=== PATIENT | male | born 1980 | race Caucasian/White ===

== ENCOUNTER 2017-12-15 20:57 | Inpatient (IN) | payer OTHER ==
[~2017-12-15] VITALS: Ht 177.8 cm; Wt 90.9 kg
--- NOTE | ~2017-12-15 | EKG ---
[place], [place] ELECTROCARDIOGRAM REPORT NAME: STEPHEN VELASQUEZ UNIT #: [id number] ROOM: [facility] DOCTOR: INDIRA DRAFT REPORT BIRTHDATE: [address] 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 Electronically Signed On 12-16-2017 8:07:10 PDT by Nelson Rubio MD CM:EKGRPT:ELECTROCARDIOGRAM REPORT [id number] DESIRAE CRAIN DRAFT REPORT DESIRAE SHELTON DO
--- NOTE | ~2017-12-15 | CON ---
[place], [place] REPORT OF CONSULTATION NAME: STEPHEN VELASQUEZ UNIT #: [id number] ROOM: 501 DOCTOR: MEDHAT SOTO MD BIRTHDATE: [birth year] DOS: 12/16/2017 CARDIOLOGY CONSULTATION CHIEF COMPLAINT: Chest pain. HISTORY OF PRESENT ILLNESS: The patient was seen in the Cardiology Department just prior to a stress test. He is being evaluated for chest pain. He is a 37-year-old man who has a history of non-Hodgkin's lymphoma, which was diagnosed about 2014. He states that he did have swollen lymph nodes for several years prior to the actual diagnosis. He was treated and went into remission, but recently was found to have adenopathy in his left groin. A CAT scan and biopsy confirmed recurrent disease and he is to be evaluated by Oncology in the very near future. Last night while lying on a sofa watching television, he developed a sharp pain that radiated across his chest. This got worse with lying down and felt somewhat better when he sat up. It was made worse by a deep breath. There was no associated fever, chill or sweat. He presented to the Emergency Room where aspirin and nitroglycerin did not afford any relief. Initial troponin levels were normal. White count was normal at 9300. Electrocardiogram showed early repolarization changes, but no acute ischemia. A CT scan of the chest showed no evidence for pericarditis, pulmonary embolism, pleural effusion or mediastinal adenopathy. The patient continues to have pain today. Once again, it is made worse by deep breathing or lying down. He does admit to severe gastroesophageal reflux disease, but states that this feels different from that. PAST MEDICAL HISTORY: Includes, 1. Non-Hodgkin's lymphoma in remission until recently and first diagnosed around 2014. 2. Chest pain prompting current admission. The patient denies any history of diabetes, hypertension, hyperlipidemia, myocardial infarction or stroke. FAMILY HISTORY: Family members do have type 2 diabetes mellitus, hypertension and a stroke. None of these occurred at an early age. MEDICATIONS PRIOR TO ADMISSION: The patient is on no chronic prescribed medicines. ALLERGIES: THE PATIENT LISTS AN ALLERGY TO PENICILLIN PRODUCTS. REVIEW OF SYSTEMS: The patient denies diplopia or loss of vision. He denies lightheadedness or syncope. He denies focal weakness. He denies fevers, chills or sweats. He denies any recent weight change. He denies orthopnea or PND. He denies cough or hemoptysis. He does have the chest pain described above. He denies change in bowel or bladder habits. He denies any blood in his stools or [place], [place] REPORT OF CONSULTATION NAME: STEPHEN VELASQUEZ UNIT #: [id number] ROOM: [facility] DOCTOR: MEDHAT SOTO MD BIRTHDATE: [birth year] urine. He denies heat or cold intolerance. He denies any peripheral edema. Remainder of the review of systems is negative except as noted above. SOCIAL HISTORY: The patient drinks alcohol socially and does not smoke. He does not use recreational drugs. 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 PHYSICAL EXAMINATION: GENERAL: The patient is well-nourished white male who is awake, alert and oriented. VITAL SIGNS: Pulse is 78 regular. Blood pressure is 111/67. He is afebrile. He weighs 90.9 kg and has a body mass index 28.8. HEENT: Normocephalic, atraumatic. Extraocular muscles are intact. Sclerae are clear. Pupils equal, round and react to light. The oral mucosa is moist. Tongue is midline. NECK: Supple. He has no jugular distention. Carotids are full and I heard no bruits. He had no neck or supraclavicular masses, no thyromegaly. LUNGS: Respirations are unlabored. His chest is clear to auscultation and percussion. He has no presacral edema or chest wall tenderness. CARDIOVASCULAR: His heart has a regular rhythm. He has a very soft fourth heart sound, but no third heart sound or murmur. The PMI is not displaced. He has no precordial heave, lift or thrill. He has no pericardial rub. ABDOMEN: Soft and normally active without masses, organomegaly or bruits. EXTREMITIES: Showed no edema. Peripheral pulses are easily palpated bilaterally. LABORATORY DATA: I reviewed his electrocardiograms, which showed sinus rhythm with early repolarization changes, but no acute ST elevations. Serial troponin levels have been normal x 3. IMPRESSIONS: 1. Pleuritic chest pain. The patient's symptoms are most consistent with pleurisy or pericarditis. The EKG does not suggest pericarditis despite ST changes. His exam does not suggest pericarditis either and that he does not have a pericardial rub. CAT scan of the chest shows no pericardial fluid, but pleuritis is still a possibility. 2. History of non-Hodgkin's lymphoma in remission until recently, but recurrent according to the patient's node biopsy of his groin. PLAN: We will evaluate him further with an exercise stress myocardial perfusion study. In the interim, we will treat him with nonsteroidal anti-inflammatory drugs. Further recommendations will depend upon the results of the stress test. We thank the hospitalist physicians for asking our advice regarding the patient's care. [place], [place] REPORT OF CONSULTATION NAME: STEPHEN VELASQUEZ UNIT #: [id number] ROOM: [facility] DOCTOR: MEDHAT SOTO MD BIRTHDATE: [birth year] MEDHAT SOTO MD CM:CONSTR:REPORT OF CONSULTATION 1149 12/17/17 0156 interface
--- NOTE | ~2017-12-15 | EKG ---
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 Electronically Signed On 12-16-2017 8:06:22 PDT by Nelson Rubio MD CM:EKGRPT:ELECTROCARDIOGRAM REPORT [id number] DESIRAE CRAIN DRAFT REPORT DESIRAE SHELTON DO
--- NOTE | ~2017-12-15 | EKG ---
[place], [place] ELECTROCARDIOGRAM REPORT NAME: STEPHEN VELASQUEZ UNIT #: [id number] ROOM: 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
[~2017-12-15 20:57] MED LIST: BACTRIM 400 MG-1 TAB PO; BIAXIN500 MG PO; CIPRODEX 0.3%-7.5 ML OT; CLEOCIN150 MG PO; DOXYCYCLINE100 M2 PO; HYDROCODONE BIT1 T11 PO; LOMOTIL 0.025 M1 TAB PO; MOTRIN800 MG PO; NICODERM21 MG/24 H TD; NKHM; PREDNICOT20 MG PO; TRAMADOL50 MG PO; VICODIN 500 MG-1 TAB PO; ZITHROMAX Z PA250 MG PO; Zofran4 MG PO
[2017-12-15 21:03] VITALS: BP 133/64
[2017-12-15 21:14] LABS: BASO # 0.1 10*3/uL (0.0-0.1); BASO % 0.8 % (0.0-1.0); EOS # 0.2 10*3/uL (0.0-0.4); EOS % 2.4 % (1.0-4.0); HEMATOCRIT 45.1 % (42.0-52.0); HEMOGLOBIN 15.4 g/dl (14.0-18.0); LYMPH # 3.4 10*3/uL (1.3-4.4); LYMPH % 36.8 % (27.0-41.0); MEAN CELL VOLUME 87.4 fl (80.0-94.0); MEAN CORPUSCULAR HGB 29.8 pg (27.0-31.0); MEAN CORPUSCULAR HGB CONC 34.1 g/dl (33.0-37.0); MEAN PLATELET VOLUME 10.1 fl (9.6-12.3); MONO # 0.7 10*3/uL (0.1-1.0); MONO % 7.3 % (3.0-9.0); NEUT # 4.9 10*3/uL (2.3-7.9); NEUT % 52.5 % (47.0-73.0); PLATELET COUNT AUTOMATED 264 10*3/uL (130-400); RED BLOOD COUNT 5.16 10*6/uL (4.50-5.90); RED CELL DISTRI WIDTH 11.9 % (0-14.5); WHITE BLOOD COUNT 9.3 10*3/uL (4.8-10.8)
[2017-12-15 21:24] LABS: ACT PARTIAL THROMBO TIME 23.6 SECONDS (20.8-31.5)
[2017-12-15 21:31] LABS: ALBUMIN 4.1 gm/dl (3.1-4.5); ALKALINE PHOSPHATASE 53 U/L (45-117); BUN 17 mg/dl (7-24); CHLORIDE 108 mmol/L (98-107); CREATININE 1.41 mg/dL (0.70-1.30); POTASSIUM 3.6 mmol/L (3.5-5.1); SGOT/AST 8 IU/L (3-35); SGPT/ALT 29 U/L (12-78); SODIUM 142 mmol/L (136-145); TOTAL PROTEIN 7.3 gm/dL (6.4-8.2)
[2017-12-15 21:32] LABS: TROPONIN I < 0.015 ng/ml (<0.045)
[2017-12-15 21:45] VITALS: BP 124/68
[2017-12-15 23:37] VITALS: BP 132/80
[2017-12-16 00:08] VITALS: BP 136/95
[2017-12-16 02:55] VITALS: BP 104/74
[2017-12-16 03:04] LABS: BASO # 0.1 10*3/uL (0.0-0.1); BASO % 0.6 % (0.0-1.0); EOS # 0.2 10*3/uL (0.0-0.4); EOS % 1.9 % (1.0-4.0); HEMATOCRIT 43.5 % (42.0-52.0); HEMOGLOBIN 14.5 g/dl (14.0-18.0); LYMPH # 2.2 10*3/uL (1.3-4.4); LYMPH % 27.9 % (27.0-41.0); MEAN CELL VOLUME 89.7 fl (80.0-94.0); MEAN CORPUSCULAR HGB 29.9 pg (27.0-31.0); MEAN CORPUSCULAR HGB CONC 33.3 g/dl (33.0-37.0); MEAN PLATELET VOLUME 10.2 fl (9.6-12.3); MONO # 0.3 10*3/uL (0.1-1.0); NEUT % 65.3 % (47.0-73.0); PLATELET COUNT AUTOMATED 211 10*3/uL (130-400); RED BLOOD COUNT 4.85 10*6/uL (4.50-5.90); RED CELL DISTRI WIDTH 12.2 % (0-14.5); WHITE BLOOD COUNT 7.7 10*3/uL (4.8-10.8)
[2017-12-16 03:17] LABS: BUN 17 mg/dl (7-24); CHLORIDE 109 mmol/L (98-107); CREATININE 1.22 mg/dL (0.70-1.30); POTASSIUM 4.2 mmol/L (3.5-5.1); SODIUM 141 mmol/L (136-145)
[2017-12-16 03:21] LABS: CHOLESTEROL 163 mg/dL (<200); HDL CHOLESTEROL 37 mg/dl (40-60); LDL CHOLESTEROL 102 mg/dL (9-159); PHOSPHOROUS 3.2 mg/dL (2.5-4.9); TRIGLYCERIDES 118 mg/dl (<150); VLDL CHOLESTEROL 24 mg/dL (6-40)
[2017-12-16 04:13] LABS: VITAMIN D, 25-HYDROXY 26.4 ng/mL (30-100)
[2017-12-16 08:00] VITALS: BP 111/67
[2017-12-16 12:21] VITALS: BP 140/82
[2017-12-16] MEDS ORDERED: VITAMIN D5000 UNIT PO (15:53)
== END 2017-12-16 15:51 | disposition home or self-care (01) | DRG 204 ==
LOC: ED 20:57 → EDHOLD 23:54 → 5E 23:54
PROVIDERS: Student in an Organized Health Care Education/Training Program
PROC: 4A12XM4 Monitoring of Cardiac Stress, External Approach (ICD-10-PCS; principal; 2017-12-16)
PROC: 3E073KZ Introduction of Other Diagnostic Substance into Coronary Artery, Percutaneous Approach (ICD-10-PCS; principal; 2017-12-16)
DX: R07.81 Pleurodynia (principal); C85.90 Non-Hodgkin lymphoma, unspecified, unspecified site; E87.8 Other disorders of electrolyte and fluid balance, not elsewhere classified; R73.9 Hyperglycemia, unspecified; E86.0 Dehydration; E83.41 Hypermagnesemia; E83.51 Hypocalcemia; E55.9 Vitamin D deficiency, unspecified; N28.9 Disorder of kidney and ureter, unspecified; Z88.0 Allergy status to penicillin; Z83.3 Family history of diabetes mellitus; Z82.3 Family history of stroke; Z82.49 Family history of ischemic heart disease and other diseases of the circulatory system; Z82.0 Family history of epilepsy and other diseases of the nervous system